=== PATIENT | female | born 1985 | race African-American/Black ===

== ENCOUNTER 2024-07-06 20:41 | Emergency (ER) | payer OTHER ==
[~2024-07-06] VITALS: Ht 154.9 cm; Wt 106.0 kg
[2024-07-06 20:46] VITALS: O2SAT 99
[2024-07-06 21:03] LABS: BASOPHILS % 0.5 % (0.0-2.0); EOSINOPHILS % 3.1 % (0.0-5.0); HEMATOCRIT. 36.7 % (36.0-48.0); LYMPHOCYTES % 39.6 % (20.0-50.0); MEAN CORPUSCULAR HEMOGLOBIN 28.1 pg (28.0-32.0); MEAN CORPUSCULAR HGB CONC 32.8 g/dL (31.0-37.0); MEAN CORPUSCULAR VOLUME 85.7 fL (81.0-99.0); MONOCYTES % 8.9 % (2.0-8.0); NEUTROPHILS % 47.9 % (40.0-76.0); PLATELET 228 x1000/uL (130-400); RED BLOOD CELL COUNT 4.28 mill/uL (4.2-5.4); RED CELL DISTRIBUTION WIDTH 14.9 % (11.6-14.6); WHITE BLOOD COUNT 6.9 x1000/uL (4.5-11.0)
[2024-07-06 21:12] LABS: CHLORIDE 108 mEq/L (98-107); POTASSIUM 4.2 mEq/L (3.5-5.1); SODIUM 141 mEq/L (136-145)
[2024-07-06 21:13] LABS: CARBON DIOXIDE 28 mEq/L (21-32)
[2024-07-06 21:14] LABS: CALCIUM 9.2 mg/dL (8.7-10.4)
[2024-07-06 21:18] LABS: CREATININE 0.7 mg/dL (0.6-1.0); GLUCOSE 96 mg/dL (70-105)
[2024-07-06 21:19] LABS: UREA NITROGEN BLOOD 17 mg/dL (9-23)
[2024-07-06 21:20] LABS: ALANINE AMINOTRANSFERASE 50 IU/L (10-49); ALBUMIN 3.8 g/dL (3.2-4.8); ASPARTATE AMINOTRANSFERASE 79 IU/L (<34); BILIRUBIN DIRECT 0.4 mg/dL (<=3.0)
[2024-07-06 21:21] LABS: BILIRUBIN TOTAL 1.1 mg/dL (0.1-1.0); PROTEIN TOTAL 6.8 g/dL (6.0-8.3)
[2024-07-06 22:59] LABS: GLUCOSE URINE NEGATIVE (NEGATIVE); KETONES URINE TRACE (NEGATIVE)
[2024-07-06 23:02] LABS: HCG SCREEN NEGATIVE
[2024-07-06 23:06] LABS: CLARITY URINE CLEAR (CLEAR); COLOR URINE YELLOW (YELLOW); SPECIFIC GRAVITY URINE 1.036 (1.005-1.030)
[2024-07-06 23:07] LABS: LEUKOCYTE ESTERASE URINE NEGATIVE (NEGATIVE); NITRITE URINE NEGATIVE (NEGATIVE); OCCULT BLOOD URINE NEGATIVE (NEGATIVE); PROTEIN URINE TRACE (NEGATIVE)
[2024-07-06 23:09] LABS: RBC URINE 0-2 /hpf (0-2); WBC URINE NONE SEEN /hpf (0-2)
[2024-07-06 23:10] LABS: BACTERIA URINE NONE SEEN; SQUAMOUS EPITHELIAL CELL URINE FEW /lpf (RARE/1+)
[2024-07-06] MEDS: SODIUM CHLORIDE 0.9% 1,000 ML IV ONE (23:21)
[2024-07-06] MEDS: PANTOPRAZOLE SODIUM 40 MG/VIAL IV NR (23:38)
[2024-07-06] MEDS: MORPHINE SULFATE 4 MG/ML INJ (FOR IV/IM USE) IV NR (23:41)
[2024-07-06] MEDS: MAGNESIUM/ALUMINUM HYDROXIDE/SIMETHICONE 30ML UDC PO NR (23:45)
[2024-07-06] MEDS: ONDANSETRON HCL 4MG/2ML INJ IV NR (23:45)
[2024-07-07] MEDS: CEFTRIAXONE 1GM/50ML 50 ML IV NR (01:14)
[2024-07-07] MEDS: METRONIDAZOLE 500 MG PREMIX 100 ML IV NR (01:41)
[2024-07-07] MEDS ORDERED: ONDANSETRON HCL 4MG/2ML INJ IV PRN ×2 (03:15→03:45)
[2024-07-07] MEDS ORDERED: MORPHINE SULFATE 2 MG/ML INJ (NOT FOR IM USE) IV PRN (03:15)
[2024-07-07] MEDS ORDERED: NALOXONE HCL 0.4MG/ML VIAL IV PRN (03:15)
[2024-07-07] MEDS ORDERED: KETOROLAC 15MG/ML VIAL IV PRN (03:15)
[2024-07-07] MEDS ORDERED: ACETAMINOPHEN 325MG TABLET PO PRN ×2 (03:45)
[2024-07-07] MEDS ORDERED: MAGNESIUM/ALUMINUM HYDROXIDE/SIMETHICONE 30ML UDC PO PRN (03:45)
[2024-07-07] MEDS ORDERED: CLONIDINE 0.1MG TABLET PO PRN (03:45)
[2024-07-07] MEDS ORDERED: GUAIFENESIN 200MG/10ML SUGAR FREE UDC PO PRN (03:45)
[2024-07-07] MEDS ORDERED: DOCUSATE SODIUM 100MG CAPSULE PO PRN (03:45)
[2024-07-07] MEDS ORDERED: IPRATROPIUM/ALBUTEROL 0.5-3(2.5)MG/3ML NEB HHN PRN (03:45)
[2024-07-07] MEDS: PIPERACILLIN/TAZO 3.375G/50ML 50 ML IV SCH (05:00)
[2024-07-07] MEDS: PANTOPRAZOLE SODIUM 40 MG/VIAL IV SCH (05:00)
[2024-07-07] MEDS: DEXT 5%/LACTATED RINGERS 1,000 ML IV SCH (05:00)
[2024-07-07 05:58] LABS: LDL CHOLESTEROL 56 mg/dL (5-100); TRIGLYCERIDE 52 mg/dL (0-150)
[2024-07-07 05:59] LABS: AMYLASE 39 IU/L (30-118)
[2024-07-07 06:00] LABS: CHOLESTEROL 107 mg/dL (<200); CREATINE KINASE 102 IU/L (34-145); HDL CHOLESTEROL 33 mg/dL (>65); PHOSPHORUS 3.7 mg/dL (2.5-4.9)
[2024-07-07 06:01] LABS: PARTIAL THROMBOPLASTIN TIME 25.9 sec (23.4-31.0); PROTHROMBIN TIME 10.7 sec (9.6-11.0)
[2024-07-07 06:19] VITALS: BP 104/55; PULSE 98; RESP 18; TEMP 37.1; O2SAT 96
== END 2024-07-07 07:00 | disposition short-term general hospital (02) ==
LOC: ER 20:41
DX: K81.9 Cholecystitis, unspecified (principal); Z98.890 Other specified postprocedural states
CPT/HCPCS: 80076; 80048; 81003; 84703; 83690; 85025; 36415 ×2; 96374; 96375 ×2; 99285; 80061; 82150; 82550; 83036; 83735; 84100; 85610; 85730; 84145; 76705; J2405; J2470; J2270; J0696; J3490; Z7610

== ENCOUNTER 2025-03-04 16:06 | Emergency (ER) | payer OTHER, MEDICAID ==
[~2025-03-04] VITALS: Ht 154.9 cm; Wt 104.0 kg
[2025-03-04 16:34] VITALS: O2SAT 100
[2025-03-04] MEDS: SODIUM CHLORIDE 0.9% 1,000 ML IV ONE (20:31)
[2025-03-04] MEDS: ACETAMINOPHEN 500MG TABLET PO ONE (20:34)
[2025-03-04] MEDS: METOCLOPRAMIDE HCL 10MG/2ML VIAL IV ONE (20:34)
[2025-03-04] MEDS: KETOROLAC 15MG/ML VIAL IV ONE (20:35)
[2025-03-04 20:39] LABS: BASOPHILS % 0.5 % (0.0-2.0); EOSINOPHILS % 2.0 % (0.0-5.0); HEMATOCRIT. 40.9 % (36.0-48.0); HEMOGLOBIN. 13.4 g/dL (12.0-16.0); LYMPHOCYTES % 29.8 % (20.0-50.0); MEAN PLATELET VOLUME 10.1 fl (7.4-10.4); MONOCYTES % 5.1 % (2.0-8.0); NEUTROPHILS % 62.6 % (40.0-76.0); PLATELET 245 x1000/uL (130-400); RED BLOOD CELL COUNT 4.72 mill/uL (4.2-5.4); RED CELL DISTRIBUTION WIDTH 14.9 % (11.6-14.6)
[2025-03-04 20:58] LABS: HCG SCREEN NEGATIVE
[2025-03-04 21:01] LABS: CREATININE 0.7 mg/dL (0.6-1.0); UREA NITROGEN BLOOD 10 mg/dL (9-23)
[2025-03-04] MEDS ORDERED: FLUT9.9S BOTHNSTRLS (21:52)
[2025-03-04 22:02] VITALS: BP 117/84; PULSE 62; RESP 14; TEMP 36.7; O2SAT 99
== END 2025-03-04 22:03 | disposition home or self-care (01) ==
LOC: ER 16:06
DX: R51.9 Headache, unspecified (principal); R06.02 Shortness of breath; R42 Dizziness and giddiness; Z90.49 Acquired absence of other specified parts of digestive tract
CPT/HCPCS: 80048; 84703; 85025; 36415; 71045; 96361; 96374; 96375; 99284; J1885; J2765; J7030; Z7610 ×2